=== PATIENT | male | born 1950 | race Caucasian/White ===

== ENCOUNTER 2016-08-14 07:59 | Emergency (ER) | payer BC ==
[2016-08-14 08:20] LABS: BASOPHIL# 0.1 X 10^3uL (0.0-0.1); BASOPHILS 1.2 % (0.0-2.0); EOSINOPHILS 1.9 % (0.0-6.0); EOSINOPHILS# 0.2 X 10^3uL (0.0-0.4); HEMATOCRIT 48.8 % (42.0-54.0); HEMOGLOBIN 16.9 g/dL (14.0-18.0); LYMPHOCYTES# 3.6 X 10^3uL (0.8-3.8); MEAN CELL VOLUME 88.9 fL (80.0-100.0); MEAN CORPUS. HGB CONCENTRATION 34.6 g/dL (32.0-36.0); MEAN CORPUSCULAR HEMOGLOBIN 30.8 pg (29.0-35.0); MEAN PLATELET VOLUME 9.3 fL (7.4-10.4); NEUTROPHILS 56.9 % (54.0-75.0); NEUTROPHILS# 6.6 X 10^3uL (2.6-6.7); PLATELET COUNT 449 X 10^3uL (130-440); RED BLOOD COUNT 5.49 X 10^6uL (4.20-6.10); RED CELL DISTRIBUTION WIDTH 12.8 % (11.5-14.5); WHITE BLOOD COUNT 11.5 X 10^3uL (3.9-10.7)
[2016-08-14 08:28] LABS: BLOOD UREA NITROGEN 17 mg/dL (9-20); CHLORIDE 97 mmol/L (98-107); EST GLOMERULAR FILTRATION RATE > 60 mL/min; MAGNESIUM 1.9 mg/dL (1.6-2.3); POTASSIUM 4.2 mmol/L (3.5-5.1); SODIUM 135 mmol/L (137-145)
[2016-08-14 08:30] LABS: PARTIAL THROMBOPLASTIN TIME 34 sec (24-38)
[2016-08-14 08:39] LABS: GLUCOSE 399 mg/dL (70-100); TROPONIN I < 0.012 ng/mL (0.00-0.034)
--- NOTE | 2016-08-14 08:58 | RADIOLOGY REPORT ---
HISTORY: Shortness of breath. COMPARISON: None available. FINDINGS: 1 view of the chest obtained. Normal heart size and central pulmonary vessels. Unremarkable mediasti nal contour. No focal infiltrates. No pleural effusion. No pneumothorax. Minimal subsegmental atelectasis or scarring left lung base. Mild elevation right hemidiaphragm. IMPRESSION: No evidence for active cardiopulmonary disease. Final Electronic Signature: This report was electronically signed by Portillo Cooper MD, FACR on 08/14/2016 8:56 AM. ac /
--- NOTE | 2016-08-14 10:03 | CT REPORT ---
HISTORY: Chest pain, elevated d-dimer COMPARISON: None. TECHNIQUE: This examination was performed using automated exposure control, adjustment of mA or kV according to patient size, and/or use of iterative reconstruction technique. Axial CT imaging from the thoracic i nlet through the upper abdomen following administration of IV contrast during peak opacification of t he pulmonary arteries, multiplanar reformatted and 3-D images are evaluated. 100cc Isovue 370 contrast. FINDINGS: The thoracic aorta, and origin of the great vessels appear normal. There is normal enhancement within the pulmonary arteries. No evidence for pulmonary embolism. The pulmonary arteries are normal in siz e. Heart size is normal. No adenopathy. No pleural or pericardial effusions. The lungs are well aerated and are clear, except for very minimal bibasilar atelectasis. There is nor mal alignment to the thoracic spine. Upper abdominal structures are grossly normal. IMPRESSION: No evidence for pulmonary embolism. Thoracic aorta appears normal. The lungs are clear except for minimal bibasilar atelectasis. Final Electronic Signature: This report was electronically signed by Guillermo Paniagua MD on 08/14/2016 10 :00 AM. felipa /
[2016-08-14 10:56] LABS: URINE MUCUS NONE SEEN (Up to 25%); URINE RBC NONE SEEN (0-5/hpf)
[2016-08-14 11:02] LABS: URINE APPEARANCE CLEAR; URINE COLOR YELLOW; URINE LEUKOCYTE ESTERASE NEGATIVE (NEGATIVE); URINE SPECIFIC GRAVITY < or = 1.005 (0.001-1.035)
[2016-08-14 11:03] LABS: URINE BACTERIA NONE SEEN (<10/hpf); URINE BILIRUBIN NEGATIVE (NEGATIVE); URINE BLOOD NEGATIVE (NEGATIVE); URINE GLUCOSE 500mg/dL (2+) (NEGATIVE); URINE KETONE 5mg/dL (NEGATIVE); URINE NITRITE NEGATIVE (NEGATIVE); URINE PROTEIN NEGATIVE (NEG - TRACE); URINE SQUAMOUS EPITHELIAL CELL 0-5/hpf (<= 15/hpf); URINE UROBILINOGEN NORMAL (NEG-1mg/dL); URINE WBC 0-4/hpf (0-4/hpf)
--- NOTE | 2016-08-14 11:21 | ER NURSING DOCUMENTATION ---
Nurse's Notes [facility] Name:Guillermo Armstrong Age:65 yrs Sex:Male :1950 Arrival Date:08/14/2016 Time:07:59 BedTrauma-C Private MD: Diagnosis:Paroxysmal Supraventricular Tach (PSVT);Diabetes Mellitus, Secondary w/o Complication Presentation: 08/14 08:04 Presenting complaint: Patient states: SINCE 6 30 AM C/O CHEST PRESSURE, SWEATING AND lc DIZZINESS. NO CARDIAC HX. 08:04 Acuity: MARCIA 2 lc 08:20 Transition of care: patient was not received from another setting of care. AIR CAT lc ACTIVATION no other NA. Asprin Given n/a. 08:20 Method Of Arrival: Private Vehicle lc Triage Assessment: 08:00 General: Appears distressed, ill, Behavior is anxious, cooperative. Pain: Denies pain. lc Complains of pain in mid-sternal area Pain radiates to JAW AND LEFT SHOULDER Pain At worst was 4 out of 10 on a pain scale. Quality of pain is described as dull, pressure, Pain began 2 hours ago. Neuro: Level of Consciousness is awake, alert, Oriented to person, place, time, event. Cardiovascular: Rhythm is SVT. Respiratory: Airway is patent Trachea midline Respiratory effort is even, unlabored. Derm: Skin is clammy, Skin is pale. Historical: - Allergies: No known drug Allergies; - Home Meds: 1. ABX FOR DIGESTIVE PROBLEM - PMHx: MENIERES; - PSHx: None; - Tetanus: < 10 years. - Ebola Screening: : Patient denies travel to an Ebola-affected area in the 21 days before illness onset. No symptoms or risks identified at this time. . - Immunization history: Flu Vaccine >1 year. - Social history: Smoking status: Patient states was never smoker of tobacco. Screenin:25 Infectious Disease Risk None. Abuse screen: Denies threats or abuse. Denies injuries lc from another. Nutritional screening: No deficits noted. Assessment: 08:00 Pain: Pain currently is 4 out of 10 on a pain scale. 08:24 See Triage Assessment done by same RN. lc 09:05 Reassessment: Patient denies pain at this time. Patient states feeling better. Patient lc states symptoms have improved. Patient appears in no apparent distress at this time. VSS, IN NSR IN 90'S, COLOR PINK, SKIN W/D. . 10:52 Pain: Pain currently is 0 out of 10 on a pain scale. Vital Signs: 07:59 BP 125 / 109 (auto/); lc 08:01 Pulse 192 MON; Resp 18; Pulse Ox 94% ; lc 08:15 BP 127 / 95 (auto/); lc 08:16 Pulse 95 MON; Resp 9; Pulse Ox 96% ; lc 08:26 Pulse 92 MON; Resp 10; Pulse Ox 96% ; arc 08:30 BP 117 / 90 (auto/); arc 08:41 Pulse 92 MON; Resp 30; Pulse Ox 95% ; arc 08:45 BP 119 / 82 (auto/); arc 09:00 BP 128 / 92 (auto/); lc 09:01 Pulse 101 MON; Resp 20; Temp 98.1; Pulse Ox 95% ; Pain 0/10; lc 09:45 BP 140 / 96 (auto/); lc 09:46 Pulse 94 MON; Resp 23; Pulse Ox 97% ; lc 09:56 Pulse 93 MON; Resp 13; Pulse Ox 95% ; arc 10:00 BP 117 / 79 (auto/); arc 10:26 Pulse 99 MON; Resp 15; Pulse Ox 96% ; arc 10:30 BP 127 / 79 (auto/); arc 10:36 Pulse 91 MON; Resp 18; Pulse Ox 94% ; arc 10:46 BP 150 / 89 (auto/); arc 10:56 Pulse 94 MON; Resp 20; Pulse Ox 97% ; arc 11:00 BP 120 / 84 (auto/); arc 11:10 Pain 0/10; lc ED Course: 07:57 EKG done. Reviewed by Aristeo Gray MD. 08:00 Patient arrived in ED. arc 08:00 surveillance system monitor on. Pulse ox on. NIBP on. lc 08:00 Inserted peripheral IV: 18 gauge in right antecubital area and blood collected. Oxygen lc Oxygen administration via nasal cannula @ 2L/min. 08:04 Luz Tapia, YONATAN is Primary Nurse. 08:05 Aristeo Gray MD is Attending Physician. be 08:12 EKG done. (by ED staff). Reviewed by Aristeo Gray MD. 08:18 Triage completed. 08:25 Valuables Remains with patient Patient has correct armband on for positive lc identification. Placed in gown. Bed in low position. Call light in reach. Side rails up X2. Adult w/ patient. 08:26 Labs drawn. (by ED staff). Sent per order to lab. 09:[address] pm1 09:[address] back [address]. pm1 Administered Medications: 08:11 Drug: Adenocard 6 mg; Route: IVP; Site: right antecubital; 08:28 Follow up: Response: Cardiac rhythm changed 08:13 Not Given (Physician Discretion): Adenocard 12 mg IVP once be 08:13 Not Given (Physician Discretion): Adenocard 12 mg IVP once be 09:10 Drug: NS 0.9% 1000 ml; Route: IV; Rate: bolus; Site: right antecubital; 11:13 Follow up: IV Status: Completed infusion; IV Intake: 1000ml Point of Care Testing: Blood Glucose: 10:51 Blood Glucose: 295 mg/dL; Urine Dip: 10:50 pH: 5.0; ; Specific [place]: 1.005; Ketones: Trace; Glucose: Positive; Protein: arc Negative; Leukocytes: Negative; Nitrite: Negative ; Blood: Negative; Bilirubin: Negative ; Urobilinogen: Normal Ranges: Intake: 11:13 IV: 1000ml; Total: 1000ml. Outcome: 10:42 Discharge ordered by . 11:10 Discharged to home ambulatory, with friend. 11:10 Condition: stable 11:10 Discharge Assessment: Patient awake, alert and oriented x 3. No cognitive and/or functional deficits noted. Patient verbalized understanding of disposition instructions. 11:10 Discharge instructions given to patient, significant other, Instructed on discharge instructions, follow up and referral plans. medication usage, COPIES OF LABS AND EKGS Demonstrated understanding of instructions, medications, Prescriptions given X 3. 11:20 Patient left the ED. 08/15 09:20 Discharge F/U Call: Unable to reach: no answer Signatures: Luz Tapia RN RN Aristeo Navarro MD MD be Laurel Bustos pm1 Le, Shelli, Reg Reg Zulema Santiago Tom Neal
--- NOTE | 2016-08-14 11:21 | ER PHYSICIAN DOCUMENTATION ---
Physician Documentation [facility] Name:Guillermo Armstrong Age:65 yrs Sex:Male :1950 Arrival Date:08/14/2016 Time:07:59 BedTrauma-C Private MD: Aristeo Lynch Disposition: 08/14 11:12 Critical Care:. Critical Care:. be Disposition: 08/14/16 10:42 Discharged to Home/Self Care. Impression: Paroxysmal Supraventricular Tach (PSVT), Diabetes Mellitus, Secondary w/o Complication. - Condition is Good. - Discharge Instructions: PAROXYSMAL ATRIAL TACHYCARDIA - PAT (P.A.T.), Diabetes - DIABETES, General Info, Agents, Anti-Arrhythmia - CARDIOVERSION, Chemical, Adult-Onset Diabetes Mellitus - DIABETIC DIET. - Prescriptions for Glipizide 5 mg Oral Tablet - take 1 tablet by ORAL route once daily before a meal; 20 tablet. Metformin 500 mg Oral Tablet Sustained Release 24 hr - take 1 tablet by ORAL route once daily with evening meal; 20 tablet. Diltiazem HCl 120 mg Oral - take 1 capsule by ORAL route once daily; 30 capsule. - Medical Reconciliation form form. - Follow up: Private Physician; When: 2 - 3 days; Reason: Recheck today's complaints. - Problem is new. - Symptoms are resolved. HPI: 11:06 This 65 yrs old Male presents to ER via Private Vehicle with complaints of be Chest Pain > 30 y/o. 11:06 The patient or guardian reports chest pain that is located primarily in the substernal be area. Onset: just prior to arrival. The pain does not radiate. Historical: - Allergies: No known drug Allergies; - Home Meds: 1. ABX FOR DIGESTIVE PROBLEM - PMHx: MENIERES; - PSHx: None; - Tetanus: < 10 years. - Ebola Screening: : Patient denies travel to an Ebola-affected area in the 21 days before illness onset. No symptoms or risks identified at this time. . - Immunization history: Flu Vaccine >1 year. - Social history: Smoking status: Patient states was never smoker of tobacco. ROS: 11:07 Cardiovascular: Positive for chest pain, SVT. be 11:07 All other systems are negative. Exam: 11:07 Constitutional: This is a well developed, well nourished patient who is awake, alert, be and in no acute distress. Head/Face: Normocephalic, atraumatic. Eyes: Pupils equal round and reactive to light, extra-ocular motions intact. Lids and lashes normal. Conjunctiva and sclera are non-icteric and not injected. Cornea within normal limits. Periorbital areas with no swelling, redness, or edema. ENT: Nares patent. No nasal discharge, no septal abnormalities noted. Tympanic membranes are normal and external auditory canals are clear. Oropharynx with no redness, swelling, or masses, exudates, or evidence of obstruction, uvula midline. Mucous membranes moist. Neck: Trachea midline, no thyromegaly or masses palpated, and no cervical lymphadenopathy. Supple, full range of motion without nuchal rigidity, or vertebral point tenderness. No Meningismus. Skin: Warm, dry with normal turgor. Normal color with no rashes, no lesions, and no evidence of cellulitis or diaphoresis MS/ Extremity: Pulses equal, no cyanosis. Neurovascular intact. Full, normal range of motion. 11:07 Neuro: Awake and alert, GCS 15, oriented to person, place, time, and situation. be Cranial nerves II-XII grossly intact. Motor strength 5/5 in all extremities. Sensory grossly intact. Cerebellar exam normal. Normal gait. 11:07 Cardiovascular: Rate: tachycardic, Rhythm: PSVT. 11:07 Respiratory: the patient does not display signs of respiratory distress, Respirations: normal. Vital Signs: 07:59 BP 125 / 109 (auto/); lc 08:01 Pulse 192 MON; Resp 18; Pulse Ox 94% ; lc 08:15 BP 127 / 95 (auto/); lc 08:16 Pulse 95 MON; Resp 9; Pulse Ox 96% ; lc 08:26 Pulse 92 MON; Resp 10; Pulse Ox 96% ; arc 08:30 BP 117 / 90 (auto/); arc 08:41 Pulse 92 MON; Resp 30; Pulse Ox 95% ; arc 08:45 BP 119 / 82 (auto/); arc 09:00 BP 128 / 92 (auto/); lc 09:01 Pulse 101 MON; Resp 20; Temp 98.1; Pulse Ox 95% ; Pain 0/10; lc 09:45 BP 140 / 96 (auto/); lc 09:46 Pulse 94 MON; Resp 23; Pulse Ox 97% ; lc 09:56 Pulse 93 MON; Resp 13; Pulse Ox 95% ; arc 10:00 BP 117 / 79 (auto/); arc 10:26 Pulse 99 MON; Resp 15; Pulse Ox 96% ; arc 10:30 BP 127 / 79 (auto/); arc 10:36 Pulse 91 MON; Resp 18; Pulse Ox 94% ; arc 10:46 BP 150 / 89 (auto/); arc 10:56 Pulse 94 MON; Resp 20; Pulse Ox 97% ; arc 11:00 BP 120 / 84 (auto/); arc 11:10 Pain 0/10; lc MDM: 08:05 Patient medically screened. be 11:09 Differential diagnosis: abnormal EKG, unstable angina, PSVT. The patient was not given be aspirin in the Emergency Department. Data reviewed: vital signs, nurses notes, lab test result(s), EKG, radiologic studies. Data interpreted: manager contract: rate is 190 beats/min, rhythm is supraventricular tachycardia. ECG:. ECG:. 11:13 Data reviewed: and as a result, I will not give fibrinolytics as not indicated. be 11:13 Patient did not receive fibrinolytic due to not indicated. be 08/14 08:35 Order name: CBC AUTO DIF, MDIF/RMOR IF IND; Complete Time: 08:53 EDMS 08/14 08:51 Interpretation: Normal Except: Elevated WBC. be 08/14 08:40 Order name: BASIC METABOLIC PANEL; Complete Time: 08:53 EDMS 08/14 08:51 Interpretation: Normal Except: mild hyperglycemia. 08/14 08:40 Order name: MAGNESIUM; Complete Time: 08:53 EDMS 08/14 11:14 Interpretation: Normal. be 08/14 08:40 Order name: TROPONIN I; Complete Time: 08:53 EDMS 08/14 08:52 Interpretation: Normal. 08/14 08:50 Order name: PROTIME/INR; Complete Time: 08:53 EDMS 08/14 08:52 Interpretation: Normal. 08/14 08:50 Order name: PARTIAL THROMBOPLASTIN TIME; Complete Time: 08:53 EDMS 08/14 08:52 Interpretation: Normal. 08/14 08:50 Order name: DDIMER; Complete Time: 08:53 EDMS 08/14 08:52 Interpretation: Abnormal: elevated. be 08/14 11:07 Order name: UA W/ MICRO -CULTURE IF IND; Complete Time: 11:16 EDMS 08/14 11:15 Interpretation: Normal Except: glucosuria and ketones. be 08/14 11:07 Order name: URINE DRUG SCREEN, QUAL; Complete Time: 11:16 EDMS 0709 11:15 Interpretation: THC. be 08/14 09:00 Order name: CHEST; SINGLE VIEW [id number]; Complete Time: 09:37 EDMS 07 10:38 Interpretation: Normal: Normal. be 08/14 10:04 Order name: CAT SCAN; CHEST ANGIO [id number]; Complete Time: 10:39 EDMS 08/14 10:39 Interpretation: Normal. be 08/14 08:06 Order name: 12-lead EKG; Complete Time: 08:28 be 08/14 08:06 Order name: Iv Saline Lock; Complete Time: 08:28 be 08/14 08:06 Order name: Place Patient On Monitor; Complete Time: 08:28 be 08/14 08:06 Order name: Pulse Ox Continuous; Complete Time: 08:28 be 08/14 08:06 Order name: Oxygen; Complete Time: 08:28 be 08/14 10:39 Order name: Accucheck; Complete Time: 11:20 be EC:09 Rate is 190 beats/min. Rhythm is regular, PSVT with No ectopy. QRS [place] is Normal. CT be interval is normal. QRS interval is normal. QT interval is normal. No Q waves. T waves are Normal. No ST changes noted. Clinical impression: SVT. 11:09 Rate is 73 beats/min. Rhythm is regular, Normal Sinus Rhythm with No ectopy. QRS [place] be is Normal. CT interval is normal. QRS interval is normal. QT interval is normal. No Q waves. T waves are Normal. No ST changes noted. Clinical impression: Normal ECG. Interpreted by me. Dispensed Medications: 08:11 Drug: Adenocard 6 mg; Route: IVP; Site: right antecubital; 08:28 Follow up: Response: Cardiac rhythm changed lc 08:13 Not Given (Physician Discretion): Adenocard 12 mg IVP once be 08:13 Not Given (Physician Discretion): Adenocard 12 mg IVP once be 09:10 Drug: NS 0.9% 1000 ml; Route: IV; Rate: bolus; Site: right antecubital; 11:13 Follow up: IV Status: Completed infusion; IV Intake: 1000ml Point of Care Testing: Blood Glucose: 10:51 Blood Glucose: 295 mg/dL; Urine Dip: 10:50 pH: 5.0; ; Specific [place]: 1.005; Ketones: Trace; Glucose: Positive; Protein: arc Negative; Leukocytes: Negative; Nitrite: Negative ; Blood: Negative; Bilirubin: Negative ; Urobilinogen: Normal Ranges: Critical Glucose Levels:Adult <50 mg/dl or >400 mg/dl <40 mg/dl or >180 mg/dl Critical care time excluding procedures: 11:12 Critical care time: Bedside Care: 20 minutes. Total time: 20 minutes be 11:12 Critical care time: Bedside Care: 20 minutes, Family Intervention: 10 minutes. Total be time: 30 minutes Signatures: Luz Tapia RN RN Aristeo Gray MD MD be
== END 2016-08-14 11:21 | disposition home or self-care (01) ==
LOC: ER 07:59
DX: I47.1 Supraventricular tachycardia (principal); E11.65 Type 2 diabetes mellitus with hyperglycemia; I44.4 Left anterior fascicular block; R79.1 Abnormal coagulation profile; R81 Glycosuria; R82.4 Acetonuria
CPT/HCPCS: 71010; 71275; 80048; 80305; 81001; 83735; 84484; 85025; 85379; 85610; 85730; 93005; 96361; 96374; 99285